=== PATIENT | male | born 1960 | race Caucasian/White ===

== ENCOUNTER 2018-03-05 08:04 | Day surgery (SDC) | payer BC ==
[2018-03-04 13:03] VITALS: BMI 30.1
[2018-03-05 09:08] LABS: Hemoglobin 17.1 g/dL (14.0-18.0); Mean Corpuscular HGB CONC 35.3 g/dL (32.0-36.0); Mean Corpuscular Hemoglobin 31.8 pg (27.0-31.0); Mean Corpuscular Volume 89.9 fL (78.0-98.0); Mean Platelet Volume 7.8 fL (7.4-10.4); Platelet Count 168 thou/uL (130-400); RBC Distribution Width 11.8 % (11.5-14.5); Red Blood Cell (RBC) Count 5.37 mill/uL (4.70-6.10); White Blood Cell (WBC) Count 5.6 thou/uL (4.8-10.8)
[2018-03-05 09:28] LABS: Anion Gap 16 mmol/L (10-20); BUN (Urea Nitrogen) 19 mg/dL (8.4-25.7); Calc. Creatinine Clearance 125 mL/min (70-130); Calcium 9.8 mg/dL (7.8-10.44); Carbon Dioxide 24 mmol/L (22-29); Chloride 105 mmol/L (98-107); Estimated GFR-MDRD 88; Glucose 155 mg/dL (70-105); Potassium 3.9 mmol/L (3.5-5.1); Sodium 141 mmol/L (136-145)
[2018-03-05] MEDS ORDERED: Fentanyl 100 MCG/2 ML VIAL ONE ×2 (10:17→11:08)
[2018-03-05] MEDS ORDERED: CEFAZOLIN/Water 2 GM/20 ML SYRINGE ONE (10:44)
[2018-03-05] MEDS ORDERED: Midazolam HCl 2 mg/2 ml Vial ONE (10:47)
[2018-03-05] MEDS ORDERED: Ondansetron HCl/PF 4 MG/2 ML Vial ONE (11:02)
[2018-03-05] MEDS ORDERED: Dexamethasone 20 MG/5 ML VIAL ONE (11:02)
[2018-03-05] MEDS ORDERED: PROPOFOL 200 MG/20 ML VIAL ONE (11:02)
[2018-03-05] MEDS ORDERED: Bupivacaine HCl 0.5%/Epinephrine 1:200,000/PF 30 ml Vial ONE (11:36)
--- NOTE | 2018-03-05 12:10 | OP ---
DATE OF OPERATION: 03/05/2018 PREOPERATIVE DIAGNOSIS: Complex tear in the posterior horn of the medial meniscus of the right knee. POSTOPERATIVE DIAGNOSES: Complex tear in the posterior horn of the medial meniscus of the right knee with chondromalacia of the patella and chondral flap on the medial femoral condyle. PROCEDURE: Arthroscopy of the right knee with partial medial meniscectomy, shaving of the patella an d of the medial femoral condyle. SURGEON: Dr. Maximo Alston ANESTHESIA: General. TECHNIQUE: The patient was given preoperative IV antibiotics, taken to the operating room, placed in supine position. Satisfactory general anesthesia was performed. The right lower extremity was plac ed in a leg johansen and sterilely prepped and draped in usual fashion. After exsanguination, the tour niquet was raised to 250 mmHg. Knee was scoped through the usual inferior medial and inferior latera l portals. The suprapatellar pouch showed some scarring of the retinaculum. A shaver was used to re move the main scarring. There was some chondromalacia of the patella and it was smoothed down with t he shaver. The patella did ride well in the femoral groove and the femoral groove had no articular c artilage damage. Lateral compartment had normal articular cartilage. The lateral meniscus was thoro ughly inspected and probed and was free of pathology. Intercondylar notch revealed an intact anterio r cruciate ligament. The medial compartment had a chondral flap on the weightbearing surface of the medial femoral condyle which was loose and was then removed with a shaver. The medial meniscus was i nspected. The anterior horn and the body were intact. The posterior horn had a complex tearing with a radial tear and horizontal tear and a partial medial meniscectomy was performed using the shaver a nd a 50 degree arthrowand. All the debris was irrigated out of the knee joint, the instruments were removed. The portals were closed with 3-0 Rapide. The knee joint was injected with 30 mL of 0.5% Ma rcaine with epinephrine. Sterile dressing was applied. The tourniquet was released. The leg was ta laly out of the leg johansen. The patient was awakened, extubated, and transferred to the recovery room in stable condition. ESTIMATED BLOOD LOSS: None. COMPLICATIONS: None. TOURNIQUET TIME: 30 minutes. DISCHARGE MEDICATIONS: Tramadol 50 mg 1-2 every 4-6 hours as needed for pain, #60 with 2 refills. The patient may weightbear as tolerated, but initially using crutches. Follow up in my office in 1 w nara.
== END 2018-03-05 13:15 | disposition home or self-care (01) ==
LOC: SDC 08:04
PROVIDERS: ATTEND Orthopaedic Surgery
DX: S83.231A Complex tear of medial meniscus, current injury, right knee, initial encounter (principal); E11.9 Type 2 diabetes mellitus without complications; X50.1XXA Overexertion from prolonged static or awkward postures, initial encounter; Z79.84 Long term (current) use of oral hypoglycemic drugs; Z79.899 Other long term (current) drug therapy; Z88.5 Allergy status to narcotic agent
CPT/HCPCS: 80048; 85027; J0670; J1100; J2250; J2405; J2704; J3010

== ENCOUNTER 2019-01-25 12:56 | Outpatient (CLI) | payer BC ==
--- NOTE | 2019-01-25 13:37 | RAD ---
3 views cervical spine: 01/25/2019 COMPARISON: None HISTORY: Muscle tension FINDINGS: Lateral examination demonstrates disc space narrowing with degenerative endplate change and anterior osteophyte formation at C5-6 and to a lesser degree, C6-7. No prevertebral soft tissue swelling. No anterolisthesis or retrolisthesis. Open-mouth odontoid view demonstrates a normal-appear ing dens and C1-2 articulation. Alignment appears normal on frontal and lateral views. IMPRESSION: Cervical spine degenerative change as detailed above.
--- NOTE | 2019-01-25 13:38 | RAD ---
XR Thoracic Spine 3 V STANDARD: 01/25/2019 12:00 AM CLINICAL INDICATION: Pain, back tension COMPARISON: None. FINDINGS: Fracture:No fracture. Arthropathy:Mild arthropathy. Incidental findings:None of significance. IMPRESSION: 1. No acute osseous abnormality.
== END 2019-01-25 12:57 | disposition home or self-care (01) ==
LOC: SCSRAD 12:56
PROVIDERS: ATTEND Chiropractor
DX: M25.60 Stiffness of unspecified joint, not elsewhere classified (principal); M47.812 Spondylosis without myelopathy or radiculopathy, cervical region
CPT/HCPCS: 72040; 72072